=== PATIENT | male | born 1950 | race African-American/Black ===

== ENCOUNTER 2018-06-26 12:34 | Emergency (ER) | payer SELFPAY ==
[~2018-06-26] VITALS: Ht 175.3 cm; Wt 70.0 kg
[2018-06-26 12:53] VITALS: BP 153/90
== END 2018-06-26 22:45 | disposition left against medical advice (07) ==
LOC: ER 13:34
DX: Z53.21 Procedure and treatment not carried out due to patient leaving prior to being seen by health care provider (principal)